=== PATIENT | male | born 1950 | race Caucasian/White ===

== ENCOUNTER 2017-05-01 16:22 | Emergency (ER) | payer MEDICARE, OTHER ==
[~2017-05-01] VITALS: Ht 162.6 cm; Wt 68.0 kg
[~2017-05-01 16:22] MED LIST: BEN25 PO; ELIM TOP
[2017-05-01 16:26] VITALS: Ht 162.6 cm; Wt 68.0 kg
[2017-05-01] MEDS ORDERED: SOD CHLORIDE 0.9% 1,000 ML IV STA (16:30)
[2017-05-01] MEDS ORDERED: LORAZEPAM 2 MG INJ IV ONE (16:30)
[2017-05-01] MEDS ORDERED: ALBUTEROL 0.083% (NEB) 2.5 MG/3 ML AMP HHN STA (16:31)
[2017-05-01 16:51] LABS: ADD SCAN DIFF NO
[2017-05-01] MEDS ORDERED: BUPR300T48 PO ×2 (16:52→18:13)
[2017-05-01] MEDS ORDERED: BUSP10TA2 PO ×2 (16:52→18:14)
[2017-05-01 16:56] LABS: BASOPHIL # 0.1 10^3/ul (0.0-0.1); BASOPHILS % 1.1 % (0.0-2.0); EOSINOPHILS % 0.1 % (0.0-7.0); HEMOGLOBIN 13.7 g/dl (14.0-18.0); LYMPHOCYTES # 1.2 10^3/ul (0.8-2.9); MEAN CORPUSCULAR HGB CONC 35.1 g/dl (32.0-37.0); MEAN CORPUSCULAR VOLUME 82.5 fl (82.0-101.0); MEAN PLATELET VOLUME 10.3 fl (7.4-10.4); MONOCYTE # 0.4 10^3/ul (0.3-0.9); MONOCYTES % 6.1 % (0.0-11.0); NEUTROPHIL # 5.3 10^3/ul (1.6-7.5); NEUTROPHILS % 75.6 % (39.0-77.0); PLATELET COUNT 340 10^3/UL (140-415); RED BLOOD COUNT 4.73 10^6/ul (4.70-6.10); RED CELL DISTRIBUTION WIDTH 12.1 % (11.5-14.5)
--- NOTE | 2017-05-01 17:06 | RADRPT ---
PROCEDURE: XR Chest. CLINICAL INDICATION: Abdominal pain. TECHNIQUE: Single frontal view. COMPARISON: None. FINDINGS: There is a benign calcified granuloma in the left lower lung zone. The lungs are otherwise clear. The heart size is normal. There is no pleural effusion or pneumothorax. There are is osteoarthrosis of the right glenohumeral joint. IMPRESSION: 1. Benign calcified granuloma in the left lower lobe. 2. Osteoarthrosis of the right glenohumeral joint. 3. Otherwise normal chest radiograph. RPTAT: QQ .Karlos Mello MD, MD Date Time Electronically viewed and signed by .Karlos Mello MD, MD on 05/01/2017 17:06 .R/
--- NOTE | 2017-05-01 17:10 | ERD ---
ER Documentation Chief Complaint Date/Time DATE: 05/01/17 TIME: 17:09 Chief Complaint SOB SINCE THIS MORNING AND FEELS WEAK HPI 67-year-old man brought in by EMS for shortness of breath, dyspnea states he smoked marijuana which may have been laced with another drug. He denies COPD or chronic bronchitis, no fevers or chills, no cough, no chest pain, no recent calf or leg swelling. Patient was transported here by EMS without further complications. He does have a history of psychiatric illness and has been off of his medications but denies suicidal homicidal ideation. ROS All systems reviewed and are negative except as per history of present illness. Medications Home Meds Active Scripts Buspirone Hcl* (Buspirone Hcl*) 10 Mg Tab, 10 MG PO BID, #20 TAB Prov:TAWANDA KIRKLAND MD 05/01/17 Bupropion Hcl* (Wellbutrin XL*) 300 Mg Tab.sr.24h, 300 MG PO DAILY, #15 TAB.SA Prov:TAWANDA KIRKLAND MD 05/01/17 Discontinued Reported Medications Buspirone Hcl* (Buspirone Hcl*) 10 Mg Tab, 60 MG PO DAILY, TAB 05/01/17 Bupropion Hcl* (Wellbutrin XL*) 300 Mg Tab.sr.24h, 300 MG PO DAILY, TAB.SA 05/01/17 Discontinued Scripts Diphenhydramine Hcl* (Benadryl*) 25 Mg Cap, 25 MG PO Q6, #30 CAP Prov:RADHA ENGLAND PA-C 05/14/16 Permethrin* (Elimite*) 5% Cr, 1 APPLIC TOP ONCE, #1 TUB Prov:RADHA ENGLAND PA-C 05/14/16 Allergies Allergies: Coded Allergies: No Known Allergy (Unverified , 05/01/17) PMhx/Soc Psychiatric illness History of Surgery: Yes (SBO, LEFT LEG FRACTURE) Anesthesia Reaction: No Hx Neurological Disorder: No Hx Respiratory Disorders: No Hx Cardiac Disorders: No Hx Psychiatric Problems: Yes (PARANOID-SCHIZO, DEPRESSION) Hx Miscellaneous Medical Probl: No Hx Alcohol Use: Yes (7 YRS SOBER) Hx Substance Use: Yes (MARAJUANA DAILY) Hx Tobacco Use: No Smoking Status: Former smoker FmHx Family History: No diabetes Physical Exam Vitals Vital Signs Date Time Temp Pulse Resp B/P Pulse Ox O2 Delivery O2 Flow Rate FiO2 05/01/17 16:39 85 20 96 21 05/01/17 16:26 98.9 106 22 90/63 97 Physical Exam GENERAL: Well-developed, well-nourished, appears dehydrated, afebrile, anxious HEENT: Dry mucous membranes, pink conjunctiva, no cervical spine tenderness or step-off deformities, no goiter, no jaundice or icterus, extraocular movements intact without pain. No submandibular induration, and no pharyngeal erythema NEURO: Alert and oriented 3, cranial nerves II through XII intact bilaterally, pupils equal round reactive to light, no focal deficits or facial asymmetry, sensation intact distally Strength 5/5 in upper and lower extremities bilaterally CARDIAC: Tachycardic and regular, no murmurs rubs or gallops LUNGS: Clear bilaterally no wheezing crackles or stridor ABDOMEN: Soft nontender, no guarding, no rigidity, no rebound, no psoas sign no obturator sign. Normoactive bowel sounds SKIN: Warm and dry to touch, no abrasions, contusions, or hematomas, no lacerations, no ecchymosis, no target lesions, and without ulcers EXTREMITIES: No clubbing cyanosis or edema, calves are bilaterally symmetrical, no Homans sign, no popliteal cord sign. Distal pulses equal and bilateral PSYCH: Anxious Result Diagram: 05/01/17 1638 05/01/17 1638 Results 24 hrs Laboratory Tests Test 05/01/17 16:38 White Blood Count 7.010^3/ul Red Blood Count 4.7310^6/ul Hemoglobin 13.7g/dl Hematocrit 39.0% Mean Corpuscular Volume 82.5fl Mean Corpuscular Hemoglobin 29.0pg Mean Corpuscular Hemoglobin Concent 35.1g/dl Red Cell Distribution Width 12.1% Platelet Count 79656^3/UL Mean Platelet Volume 10.3fl Neutrophils % 75.6% Lymphocytes % 17.0% Monocytes % 6.1% Eosinophils % 0.1% Basophils % 1.1% Nucleated Red Blood Cells % 0.0/100WBC Neutrophils # 5.310^3/ul Lymphocytes # 1.210^3/ul Monocytes # 0.410^3/ul Eosinophils # 0.010^3/ul Basophils # 0.110^3/ul Nucleated Red Blood Cells # 0.010^3/ul Sodium Level 139mmol/L Potassium Level 3.8mmol/L Chloride Level 104mmol/L Carbon Dioxide Level 22mmol/L Anion Gap 17 Blood Urea Nitrogen 18mg/dl Creatinine 1.43mg/dl Glucose Level 92mg/dl Calcium Level 10.4mg/dl Total Bilirubin 0.6mg/dl Direct Bilirubin 0.00mg/dl Indirect Bilirubin 0.6mg/dl Aspartate Amino Transf (AST/SGOT) 33IU/L Alanine Aminotransferase (ALT/SGPT) 31IU/L Alkaline Phosphatase 68IU/L Troponin I 0.028ng/ml Total Protein 6.9g/dl Albumin 4.9g/dl Globulin 2.00g/dl Albumin/Globulin Ratio 2.45 Lipase 301U/L Ethyl Alcohol Level < 10.0mg/dl Current Medications Medications (Trade) Dose Ordered Sig/Selena Route PRN Reason Start Time Stop Time Status Last Admin Dose Admin Sodium Chloride (NS) 1,000 ml @ 1,000 mls/hr Q1H STAT IV 05/01/17 16:30 05/01/17 17:29 DC 05/01/17 16:51 Lorazepam (Ativan) 1 mg ONCE ONCE IV 05/01/17 16:30 05/01/17 16:32 DC 05/01/17 16:51 Albuterol (Proventil 0.083% (Neb)) 5 mg ONCE STAT HHN 05/01/17 16:31 05/01/17 16:32 DC 05/01/17 16:38 Procedures/MDM IV line was established 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 Patient was afebrile. EKG performed, read by me: 96 bpm, normal sinus rhythm, normal axis, no acute ST segment changes, narrow QRS complex, with good R-wave progression in precordial leads. I administered 1 L normal saline intravenously for dehydration, lorazepam 1 mg IV for anxiety, and albuterol 5 mg via nebulizer for complaints of shortness of breath. One view chest x-ray performed, read by me revealed atelectatic changes bilaterally, no acute infiltrates, no pneumothorax. CBC was unremarkable, electrolytes revealed dehydration with a BUN/creatinine ratio of 18/1.4, liver function tests are normal, troponin was negative. Alcohol level was negative. Differential diagnoses considered, included but not limited to acute coronary syndrome, pulmonary embolism, aortic dissection, abdominal aortic aneurysm, sepsis, stroke, meningitis, encephalitis, pneumonia, appendicitis, cholecystitis , bowel obstruction, pyelonephritis, nephrolithiasis, cystitis, as well as metabolic, hematologic, and electrolyte abnormalities. As well as abscess, cellulitis, fractures, and dislocations. Patient feels much better at this time, and vital signs are normal, symptoms have improved. I did give strict instructions to return to the ED if symptoms continue or worsen, patient will otherwise follow-up with primary care physician. Patient understood instructions and agreed to plan. Disclaimer: Inadvertent spelling and grammatical errors are likely due to EHR/ dictation software use and do not reflect on the overall quality of patient care. Also, please note that the electronic time recorded on this note does not necessarily reflect the actual time of the patient encounter. Departure Diagnosis: Primary Impression: Psychiatric illness Additional Impressions: Shortness of breath Dehydration Condition: Good TAWANDA KIRKLAND MD May 01, 2017 17:10
[2017-05-01 17:17] LABS: ALANINE AMINOTRANSFERASE 31 IU/L (13-69); ALBUMIN 4.9 g/dl (3.3-4.9); ALBUMIN/GLOBULIN RATIO 2.45; ALKALINE PHOSPHATASE 68 IU/L (42-121); ANION GAP 17 (8-16); ASPARTATE AMINO TRANSFERASE 33 IU/L (15-46); BILIRUBIN,INDIRECT 0.6 mg/dl (0-1.1); BILIRUBIN,TOTAL 0.6 mg/dl (0.2-1.3); BLOOD UREA NITROGEN 18 mg/dl (7-20); CALCIUM 10.4 mg/dl (8.4-10.2); CARBON DIOXIDE 22 mmol/L (21-31); CHLORIDE 104 mmol/L (97-110); CREATININE 1.43 mg/dl (0.61-1.24); GLUCOSE 92 mg/dl (70-220); POTASSIUM 3.8 mmol/L (3.5-5.1); SODIUM 139 mmol/L (135-144); TOTAL PROTEIN 6.9 g/dl (6.1-8.1)
[2017-05-01 17:23] LABS: ETHANOL < 10.0 mg/dl
[2017-05-01 17:27] LABS: TROPONIN-I 0.028 ng/ml (0.00-0.12)
[2017-05-01 18:33] VITALS: BP 111/76; PULSE 86; RESP 18
== END 2017-05-01 18:34 | disposition home or self-care (01) ==
LOC: E/R 16:22
DX: F99 Mental disorder, not otherwise specified (principal); E86.0 Dehydration; Z87.891 Personal history of nicotine dependence
CPT/HCPCS: 36415; 71010; 80053; 80306; 83690; 84484; 85025; 93005; 94664; 96374; 99285; J2060; J7030

== ENCOUNTER 2017-08-13 10:12 | Emergency (ER) | payer MEDICARE, OTHER ==
[~2017-08-13] VITALS: Wt 91.0 kg
[~2017-08-13 10:12] MED LIST changes: -BEN25 PO; +BUPR300T48 PO; +BUSP10TA2 PO; -ELIM TOP
[2017-08-13] MEDS ORDERED: LORAZEPAM 1 MG TAB PO ONE (10:30)
[2017-08-13 10:52] LABS: BASOPHIL # 0.1 10^3/ul (0.0-0.1); BASOPHILS % 1.2 % (0.0-2.0); EOSINOPHILS % 0.6 % (0.0-7.0); HEMATOCRIT 32.4 % (42.0-52.0); LYMPHOCYTES # 1.3 10^3/ul (0.8-2.9); LYMPHOCYTES % 24.7 % (15.0-51.0); MEAN CORPUSCULAR HEMOGLOBIN 23.9 pg (29.0-33.0); MEAN CORPUSCULAR HGB CONC 30.9 g/dl (32.0-37.0); MEAN CORPUSCULAR VOLUME 77.5 fl (82.0-101.0); MEAN PLATELET VOLUME 9.7 fl (7.4-10.4); MONOCYTE # 0.5 10^3/ul (0.3-0.9); MONOCYTES % 10.4 % (0.0-11.0); NEUTROPHIL # 3.3 10^3/ul (1.6-7.5); NEUTROPHILS % 62.9 % (39.0-77.0); PLATELET COUNT 290 10^3/UL (140-415); RED BLOOD COUNT 4.18 10^6/ul (4.70-6.10); RED CELL DISTRIBUTION WIDTH 13.3 % (11.5-14.5); WHITE BLOOD COUNT 5.2 10^3/ul (4.8-10.8)
[2017-08-13 11:11] LABS: ANION GAP 14 (8-16); BLOOD UREA NITROGEN 13 mg/dl (7-20); CALCIUM 9.2 mg/dl (8.4-10.2); CARBON DIOXIDE 21 mmol/L (21-31); CHLORIDE 111 mmol/L (97-110); CREATININE 0.96 mg/dl (0.61-1.24); GLUCOSE 82 mg/dl (70-220); POTASSIUM 3.5 mmol/L (3.5-5.1); SODIUM 142 mmol/L (135-144)
[2017-08-13 11:12] LABS: ETHANOL < 10.0 mg/dl
--- NOTE | 2017-08-13 12:25 | ERD ---
ER Documentation Chief Complaint Date/Time DATE: 08/13/17 TIME: 12:21 Chief Complaint DRUG USE "SOMEONE LACED MY WEED" HPI This is a 67-year-old male who presents via EMS. The patient has chronic blindness. He lives alone. He states that he smokes marijuana. He states that he smoked marijuana earlier today and states that he is having hallucinations. He believes that he is seeing where things. He is not hearing voices he denies any suicidal homicidal thoughts. He thinks that somebody placed something in his marijuana. The patient is similar visits to the hospital for similar reasons in the past. Denies any headache, chest pain or shortness of breath. No other complaints. ROS All systems reviewed and are negative except as per history of present illness. Medications Home Meds Active Scripts Buspirone Hcl* (Buspirone Hcl*) 10 Mg Tab, 10 MG PO BID, #20 TAB Prov:TAWANDA KIRKLAND MD 05/01/17 Bupropion Hcl* (Wellbutrin XL*) 300 Mg Tab.sr.24h, 300 MG PO DAILY, #15 TAB.SA Prov:TAWANDA KIRKLAND MD 05/01/17 Allergies Allergies: Coded Allergies: No Known Allergy (Unverified , 05/01/17) PMhx/Soc History of Surgery: Yes (SBO, LEFT LEG FRACTURE) Anesthesia Reaction: No Hx Neurological Disorder: No Hx Respiratory Disorders: No Hx Cardiac Disorders: No Hx Psychiatric Problems: Yes (PARANOID-SCHIZO, DEPRESSION) Hx Miscellaneous Medical Probl: No Hx Alcohol Use: Yes (7 YRS SOBER) Hx Substance Use: Yes (MARAJUANA DAILY) Hx Tobacco Use: No Smoking Status: Current every day smoker FmHx Family History: No diabetes Physical Exam Vitals Vital Signs Date Time Temp Pulse Resp B/P Pulse Ox O2 Delivery O2 Flow Rate FiO2 08/13/17 10:17 98.0 99 18 124/83 99 Physical Exam General: Well developed, well nourished, no acute distress Head: Normocephalic, atraumatic. Eyes: Chronic blindness ENT: Moist mucous membranes Neck: Supple, no lymphadenopathy Respiratory: Lungs clear bilaterally, no distress Cardiovascular: RRR, no murmurs, rubs, or gallops Abdominal: Soft, non-tender, non-distended, no peritoneal signs : Deferred MSK: No edema, no unilateral swelling, 5/5 strength Neurologic: Alert and oriented, moving all extremities, normal speech, no focal weakness, no cerebellar signs Skin: No rash Psych: Visual hallucinations, no suicidal thoughts Result Diagram: 08/13/17 1040 08/13/17 1038 Results 24 hrs Laboratory Tests Test 08/13/17 10:38 08/13/17 10:40 Sodium Level 142mmol/L Potassium Level 3.5mmol/L Chloride Level 111mmol/L Carbon Dioxide Level 21mmol/L Anion Gap 14 Blood Urea Nitrogen 13mg/dl Creatinine 0.96mg/dl Glucose Level 82mg/dl Calcium Level 9.2mg/dl Ethyl Alcohol Level < 10.0mg/dl White Blood Count 5.210^3/ul Red Blood Count 4.1810^6/ul Hemoglobin 10.0g/dl Hematocrit 32.4% Mean Corpuscular Volume 77.5fl Mean Corpuscular Hemoglobin 23.9pg Mean Corpuscular Hemoglobin Concent 30.9g/dl Red Cell Distribution Width 13.3% Platelet Count 00191^3/UL Mean Platelet Volume 9.7fl Neutrophils % 62.9% Lymphocytes % 24.7% Monocytes % 10.4% Eosinophils % 0.6% Basophils % 1.2% Nucleated Red Blood Cells % 0.0/100WBC Neutrophils # 3.310^3/ul Lymphocytes # 1.310^3/ul Monocytes # 0.510^3/ul Eosinophils # 0.010^3/ul Basophils # 0.110^3/ul Nucleated Red Blood Cells # 0.010^3/ul Current Medications Medications (Trade) Dose Ordered Sig/Selena Route PRN Reason Start Time Stop Time Status Last Admin Dose Admin Lorazepam (Ativan) 1 mg ONCE ONCE PO 08/13/17 10:30 08/13/17 10:31 DC 08/13/17 11:16 Procedures/MDM LAB INTERPRETATION: No significant leukocytosis or electrolyte disturbance MEDICAL DECISION MAKING: The patient presents with hallucinations after using marijuana. His presentation is very consistent with likely THC intoxication. He exhibits no signs or symptoms concerning for increased intracranial pressure, acute psychosis. He denies any suicidal or homicidal thoughts. The patient states that he lives alone but he is having no difficulty with activities of daily living. He states that he can feed himself get himself to and from appointments and about the community. ER COURSE: The patient was given Ativan per verbal request. His laboratory testing is unrevealing. The patient states the hallucinations are almost completely gone. The patient at this time exhibits no evidence of acute psychosis that warrants psychiatric evaluation or inpatient hospitalization. I offered social work but the patient states that he does not need this. The patient is comfortable going home. He would like a taxi voucher for discharge. I kept the patient and/or family informed of laboratory and diagnostic imaging results throughout the emergency room course. We discussed follow up with the patient's primary care doctor within 24 to 48 hours as needed. We also discussed return to the emergency room for worsening symptoms or worsening condition. Outpatient referral: [None required] Departure Diagnosis: Primary Impression: Marijuana intoxication Complication of substance-induced condition: uncomplicated Qualified Code: F12.920 - Cannabis intoxication without complication Additional Impression: Marijuana abuse Condition: Stable Patient Instructions: Marijuana Abuse Referrals: [facility] YOU HAVE RECEIVED A MEDICAL SCREENING EXAM AND THE RESULTS INDICATE THAT YOU DO NOT HAVE A CONDITION THAT REQUIRES URGENT TREATMENT IN THE EMERGENCY DEPARTMENT. FURTHER EVALUATION AND TREATMENT OF YOUR CONDITION CAN WAIT UNTIL YOU ARE SEEN IN YOUR DOCTORS OFFICE WITHIN THE NEXT 1-2 DAYS. IT IS YOUR RESPONSIBILITY TO MAKE AN APPOINTMENT FOR FOLOW-UP CARE. IF YOU HAVE A PRIMARY DOCTOR --you should call your primary doctor and schedule an appointment IF YOU DO NOT HAVE A PRIMARY DOCTOR YOU CAN CALL OUR PHYSICIAN REFERRAL HOTLINE AT IF YOU CAN NOT AFFORD TO SEE A PHYSICIAN YOU CAN CHOSE FROM THE FOLLOWING [facility] [address] [facility]. [facility] [address] [facility] [address] [facility] [facility] [address] [facility]. [facility] [address] [facility]. [facility]. [address] [facility] YOU HAVE RECEIVED A MEDICAL SCREENING EXAM AND THE RESULTS INDICATE THAT YOU DO NOT HAVE A CONDITION THAT REQUIRES URGENT TREATMENT IN THE EMERGENCY DEPARTMENT. FURTHER EVALUATION AND TREATMENT OF YOUR CONDITION CAN WAIT UNTIL YOU ARE SEEN IN YOUR DOCTORS OFFICE WITHIN THE NEXT 1-2 DAYS. IT IS YOUR RESPONSIBILITY TO MAKE AN APPOINTMENT FOR FOLOW-UP CARE. IF YOU HAVE A PRIMARY DOCTOR --you should call your primary doctor and schedule and appointment IF YOU DO NOT HAVE A PRIMARY DOCTOR YOU CAN CALL OUR PHYSICIAN REFERRAL HOTLINE AT . IF YOU CAN NOT AFFORD TO SEE A PHYSICIAN YOU CAN CHOSE FROM THE FOLLOWING [facility] INSTITUTIONS: [facility] [address] [place] [address] [facility] [address] [place] [address] [facility] + [facility] [address] [place] [address] Additional Instructions: Call your primary care doctor TOMORROW for an appointment during the next 1 WEEK.Tell the guidance secretary that you were referred from this facility.See the doctor sooner or return here if your condition worsens before your appointment time. CASPER MILLER MD Aug 13, 2017 12:25
[2017-08-13 13:49] VITALS: BP 122/87; PULSE 86; RESP 20; TEMP 98.3
== END 2017-08-13 13:54 | disposition home or self-care (01) ==
LOC: E/R 10:12
DX: F12.920 Cannabis use, unspecified with intoxication, uncomplicated (principal); F17.210 Nicotine dependence, cigarettes, uncomplicated; R40.2142 Coma scale, eyes open, spontaneous, at arrival to emergency department; R40.2252 Coma scale, best verbal response, oriented, at arrival to emergency department; R40.2362 Coma scale, best motor response, obeys commands, at arrival to emergency department
CPT/HCPCS: 36415; 80048; 80306; 85025; 99283

== ENCOUNTER 2017-09-02 09:04 | Inpatient (IN) | payer MEDICARE, OTHER ==
[~2017-09-02] VITALS: Ht 177.8 cm; Wt 68.6 kg
[2017-09-02] MEDS ORDERED: NITROGLYCERIN 2% 1 GM OINT PKT TD STA (09:10)
[2017-09-02] MEDS ORDERED: LORAZEPAM 2 MG INJ IV ONE (09:30)
[2017-09-02] MEDS ORDERED: NITROGLYCERIN (SL) 0.4 MG TAB SL PRN (09:30)
--- NOTE | 2017-09-02 10:04 | RADRPT ---
PROCEDURE: XR Chest. CLINICAL INDICATION: chest pain TECHNIQUE: Single frontal view of the chest was obtained COMPARISON: CHEST 05/01/2017 FINDINGS: The heart and mediastinum are within normal limits. There is a tiny left lower lobe calcified granuloma. The lungs are otherwise clear. There is no pleural effusion or pneumothorax. RPTAT: AA IMPRESSION: No acute disease. .Nelson Antunez MD, MD Date Time Electronically viewed and signed by .Nelson Antunez MD, on 09/02/2017 10:04 .S/
[2017-09-02] MEDS ORDERED: ACETAMINOPHEN 325 MG TAB PO PRN ×2 (11:30→14:30)
[2017-09-02] MEDS ORDERED: ONDANSETRON 4 MG INJ IV PRN ×2 (11:30→14:30)
[2017-09-02 11:40] LABS: BASOPHIL # 0.1 10^3/ul (0.0-0.1); BASOPHILS % 0.9 % (0.0-2.0); EOSINOPHILS % 0.2 % (0.0-7.0); HEMATOCRIT 34.1 % (42.0-52.0); HEMOGLOBIN 10.2 g/dl (14.0-18.0); LYMPHOCYTES # 0.9 10^3/ul (0.8-2.9); LYMPHOCYTES % 15.5 % (15.0-51.0); MEAN CORPUSCULAR HEMOGLOBIN 23.6 pg (29.0-33.0); MEAN CORPUSCULAR HGB CONC 29.9 g/dl (32.0-37.0); MEAN CORPUSCULAR VOLUME 78.8 fl (82.0-101.0); MEAN PLATELET VOLUME 9.9 fl (7.4-10.4); MONOCYTE # 0.5 10^3/ul (0.3-0.9); MONOCYTES % 8.3 % (0.0-11.0); NEUTROPHIL # 4.3 10^3/ul (1.6-7.5); NEUTROPHILS % 74.9 % (39.0-77.0); PLATELET COUNT 314 10^3/UL (140-415); RED BLOOD COUNT 4.33 10^6/ul (4.70-6.10); RED CELL DISTRIBUTION WIDTH 14.4 % (11.5-14.5); WHITE BLOOD COUNT 5.8 10^3/ul (4.8-10.8)
[2017-09-02 12:11] LABS: ANION GAP 17 (8-16); BLOOD UREA NITROGEN 24 mg/dl (7-20); CALCIUM 8.6 mg/dl (8.4-10.2); CARBON DIOXIDE 21 mmol/L (21-31); CHLORIDE 107 mmol/L (97-110); CREATININE 1.14 mg/dl (0.61-1.24); GLUCOSE 85 mg/dl (70-220); SODIUM 141 mmol/L (135-144)
[2017-09-02 12:22] LABS: TROPONIN-I < 0.012 ng/ml (0.00-0.12)
[2017-09-02 12:50] VITALS: BP 107/75; PULSE 78; RESP 16; TEMP 98
--- NOTE | 2017-09-02 13:13 | ERD ---
ER Documentation Chief Complaint Chief Complaint BIBA C/O MEDIAL CHEST PAIN 07/17 NON RADIATING HPI Patient is a 67-year-old male with no medical problems who presents with chest pain. The patient was brought in by ambulance. He was given aspirin 3 nitroglycerin. He came from the counseling center who would call 911 because he was having chest pain. He had chest pain for 2 hours which is midsternal. He feels a stabbing type pain that he rates as a 9 out of 10. There is no radiation. He says "feels like somebody hit me on my chest". ROS All systems reviewed and are negative except as per history of present illness. Medications Home Meds Active Scripts Buspirone Hcl* (Buspirone Hcl*) 10 Mg Tab, 10 MG PO BID, #20 TAB Prov:TAWANDA KIRKLAND MD 05/01/17 Bupropion Hcl* (Wellbutrin XL*) 300 Mg Tab.sr.24h, 300 MG PO DAILY, #15 TAB.SA Prov:TAWANDA KIRKLAND MD 05/01/17 Allergies Allergies: Coded Allergies: No Known Allergy (Unverified , 05/01/17) PMhx/Soc Medical and Surgical Hx: pt denies Surgical Hx History of Surgery: No Anesthesia Reaction: No Hx Neurological Disorder: No Hx Respiratory Disorders: No Hx Cardiac Disorders: Yes (HLD) Hx Psychiatric Problems: Yes (BIPOLAR) Hx Miscellaneous Medical Probl: No Hx Alcohol Use: No Hx Substance Use: No Hx Tobacco Use: Yes Smoking Status: Former smoker FmHx Family History: No coronary disease Physical Exam Vitals Vital Signs Date Time Temp Pulse Resp B/P Pulse Ox O2 Delivery O2 Flow Rate FiO2 09/02/17 09:10 Nasal Cannula 2 09/02/17 09:10 98.1 76 16 109/77 99 Physical Exam Const: Moderate distress secondary to chest pain Head: Atraumatic Eyes: Normal Conjunctiva ENT: Normal External Ears, Nose and Mouth. Neck: Full range of motion..~ No meningismus. Resp: Clear to auscultation bilaterally Cardio: Regular rate and rhythm, no murmurs Abd: Soft, non tender, non distended. Normal bowel sounds Skin: No petechiae or rashes Back: No midline or flank tenderness Ext: No cyanosis, or edema Neur: Awake and alert Psych: Normal Mood and Affect Result Diagram: 10/27/17 1048 09/02/17 1048 Results 24 hrs Laboratory Tests Test 09/02/17 10:48 White Blood Count 5.810^3/ul Red Blood Count 4.3310^6/ul Hemoglobin 10.2g/dl Hematocrit 34.1% Mean Corpuscular Volume 78.8fl Mean Corpuscular Hemoglobin 23.6pg Mean Corpuscular Hemoglobin Concent 29.9g/dl Red Cell Distribution Width 14.4% Platelet Count 84512^3/UL Mean Platelet Volume 9.9fl Neutrophils % 74.9% Lymphocytes % 15.5% Monocytes % 8.3% Eosinophils % 0.2% Basophils % 0.9% Nucleated Red Blood Cells % 0.0/100WBC Neutrophils # 4.310^3/ul Lymphocytes # 0.910^3/ul Monocytes # 0.510^3/ul Eosinophils # 0.010^3/ul Basophils # 0.110^3/ul Nucleated Red Blood Cells # 0.010^3/ul Sodium Level 141mmol/L Potassium Level 4.0mmol/L Chloride Level 107mmol/L Carbon Dioxide Level 21mmol/L Anion Gap 17 Blood Urea Nitrogen 24mg/dl Creatinine 1.14mg/dl Glucose Level 85mg/dl Calcium Level 8.6mg/dl Troponin I < 0.012ng/ml Current Medications Medications (Trade) Dose Ordered Sig/Selena Route PRN Reason Start Time Stop Time Status Last Admin Dose Admin Nitroglycerin (Nitroglycerin 2% Oint) 1 inch ONCE STAT TD 09/02/17 09:10 09/02/17 09:12 DC Nitroglycerin (Nitroglycerin (Sl Tab) 0.4 Mg) 1 tab Q5M UP TO 3 DOSES PRN SL CHEST PAIN 09/02/17 09:30 Lorazepam (Ativan) 1 mg ONCE ONCE IV 09/02/17 09:30 09/02/17 09:31 DC 09/02/17 09:30 Procedures/MDM EKG #1 read by me: Rate/Rhythm: Regular rate and rhythm at a normal rate Intervals: Normal Impression: No evidence of ischemia or arrhythmia EKG #2 read by me: Rate/Rhythm: Regular rate and rhythm at a normal rate Intervals: Normal Impression: No evidence of ischemia or arrhythmia Chest x-ray negative per radiology. Patient is a 67-year-old male who presents with chest pain. I am concerned for acute coronary syndrome as the patient is 67 years old. The patient was given aspirin nitroglycerin. I doubt pneumonia, pneumothorax, pulmonary embolism, or aortic dissection. The patient will need to be admitted for evaluation of his chest pain. I spoke with Dr. Lopez from the panel team for admission to a telemetry bed. Departure Diagnosis: Primary Impression: Chest pain Chest pain type: unspecified Qualified Code: R07.9 - Chest pain, unspecified type Condition: DEBBIE Ledesma MD Sep 02, 2017 13:13
[2017-09-02 13:32] VITALS: Ht 177.8 cm; Wt 68.6 kg
[2017-09-02] MEDS ORDERED: SOD CHLORIDE 0.45% 1,000 ML IV SCH (14:12)
[2017-09-02] MEDS ORDERED: BUSPIRONE 10 MG TAB PO SCH (14:30)
[2017-09-02] MEDS ORDERED: BISACODYL (EC) 5 MG TAB PO PRN (14:30)
[2017-09-02] MEDS ORDERED: OLANZAPINE 10 MG VIAL IM PRN (14:30)
[2017-09-02] MEDS ORDERED: LORAZEPAM 1 MG TAB PO PRN (14:30)
[2017-09-02] MEDS ORDERED: BUPROPION (XL) 150 MG TAB PO SCH (14:30)
[2017-09-02] MEDS ORDERED: morphine 2 MG INJ IV PRN (14:30)
[2017-09-02] MEDS ORDERED: PANTOPRAZOLE 40 MG INJ IV ONE (14:30)
[2017-09-02] MEDS ORDERED: NACL 0.9% 3 ML SYG IV SCH (14:30)
--- NOTE | 2017-09-02 14:32 | HP ---
Date/Time of Note Date/Time of Note DATE: 09/02/17 TIME: 14:25 Assessment/Plan VTE Prophylaxis VTE Prophylaxis Intervention: LMWH Lines/Catheters IV [facility] Saline Lock Urinary Cath still in place: No Assessment/Plan Chief Complaint/Hosp Course Patient is 67-year-old male who presents for chest pain Assessment and plan Chest pain, rule out ACS Anemia Visual hallucinations Mood disorder Questionable schizophrenia Depression Anxiety -Patient has significant psych disorder history, presents with new onset chest pain, cardiology has been consulted, troponins trended -Questionable likelihood of true ACS, will give aspirin, blood pressure low at this time will hold off on beta-kiesha, nitro as needed -As needed pain medication -Preliminary anemia workup sent out -Echocardiogram ordered Problems: HPI/ROS Admit Date/Time Admit Date/Time Sep 02, 2017 at 11:17 Hx of Present Illness Patient is a 67-year-old male with past medical history significant for bipolar and/or schizophrenia who presents with 1 day history of midsternal pinpoint chest pain. Patient states that the pain began early this morning upon sunrise and although it hurt his chest patient still went to his counseling session. Patient did complain of chest pain at the counseling session and subsequently the counselor called 911 and ambulance brought patient to [facility]. Patient states that his chest pain at the time of encounter is significantly better although there is some residual pain. Patient states that this has never happened before and he does not see a normal doctor on a regular basis. Patient does take his psych medications on time. Patient is likely homeless, has no teeth and is able to ambulate without assistance. Patient only is concerned about eating at the time of encounter. Patient has never had a stress test or ultrasound. Patient denies any shortness of breath, nausea, vomiting. Patient does state that he was sweating and had shortness of breath during the initial chest pain. 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 Neurological: Moves all extremities spontaneously Skin: No new skin lesions Labs Result Diagram: 09/02/17 1048 09/02/17 1048 Medications Medications Current Medications Bupropion HCl (Wellbutrin Xl) 300 mg DAILY PO ; Start 09/02/17 at 14:30; Status UNV Buspirone HCl 10 mg 10 mg BID PO ; Start 09/02/17 at 14:30; Status UNV Sodium Chloride (1/2 NS) 1,000 ml @ 50 mls/hr Q20H IV ; Start 09/02/17 at 14: 12; Status UNV Ondansetron HCl (Zofran Inj) 4 mg Q6H PRN IV NAUSEA AND/OR VOMITING; Start at 14:30; Status UNV Acetaminophen (Tylenol Tab) 650 mg Q6H PRN PO PAIN LEVEL 1-3 OR FEVER; Start 09/02/17 at 14:30; Status UNV Morphine Sulfate (morphine) 2 mg Q4H PRN IV SEVERE PAIN LEVEL 7-10; Start at 14:30; Status UNV Bisacodyl (Dulcolax) 5 mg DAILY PRN PO CONSTIPATION; Start 09/02/17 at 14:30; Status UNV Pantoprazole (Protonix Iv) 40 mg DAILY@06 IV ; Start 09/03/17 at 06:00; Status UNV Enoxaparin Sodium (Lovenox) 40 mg DAILY SC ; Start 09/03/17 at 09:00; Status UNV TAWANDA SOTO Sep 02, 2017 14:32
--- NOTE | 2017-09-02 15:40 | DS ---
Date/Time of Note Date/Time of Note DATE: 09/02/17 TIME: 15:39 Discharge Summary Admission/Discharge Info Admit Date/Time Sep 02, 2017 at 11:17 Discharge Date/Time Sep 02, 2017 at 14:30 Patient Condition: Serious Hx of Present Illness Patient is a 67-year-old male with past medical history significant for bipolar and/or schizophrenia who presents with 1 day history of midsternal pinpoint chest pain. Patient states that the pain began early this morning upon sunrise and although it hurt his chest patient still went to his counseling session. Patient did complain of chest pain at the counseling session and subsequently the counselor called 911 and ambulance brought patient to [facility]. Patient states that his chest pain at the time of encounter is significantly better although there is some residual pain. Patient states that this has never happened before and he does not see a normal doctor on a regular basis. Patient does take his psych medications on time. Patient is likely homeless, has no teeth and is able to ambulate without assistance. Patient only is concerned about eating at the time of encounter. Patient has never had a stress test or ultrasound. Patient denies any shortness of breath, nausea, vomiting. Patient does state that he was sweating and had shortness of breath during the initial chest pain. PMH: Mood disorder, bipolar, schizophrenia, anxiety PSH: Dusty placed in left leg, stomach surgery, SBO Social: Previous smoker, previous drinker, previous drug use Meds: buspirone and bupropion Hospital Course Patient is 67-year-old male who presents for chest pain Assessment and plan Chest pain, rule out ACS Anemia Visual hallucinations Mood disorder Questionable schizophrenia Depression Anxiety Patient was admitted, but was preoccupied with wanting to eat. Patient eloped out of the facility even before AMA forms could be presented. Patient ELOPED. Was not discharged Home Meds Active Scripts Buspirone Hcl* (Buspirone Hcl*) 10 Mg Tab, 10 MG PO BID, #20 TAB Prov:TAWANDA KIRKLAND MD 05/01/17 Bupropion Hcl* (Wellbutrin XL*) 300 Mg Tab.sr.24h, 300 MG PO DAILY, #15 TAB.SA Prov:TAWANDA KIRKLAND MD 05/01/17 Primary Care Provider Care Physician No Primary Time spent on discharge: > 30 minutes Pending Labs Laboratory Tests Test 09/02/17 10:48 White Blood Count 5.810^3/ul (4.8-10.8) Red Blood Count 4.3310^6/ul (4.70-6.10) Hemoglobin 10.2g/dl (14.0-18.0) Hematocrit 34.1% (42.0-52.0) Mean Corpuscular Volume 78.8fl (82.0-101.0) Mean Corpuscular Hemoglobin 23.6pg (29.0-33.0) Mean Corpuscular Hemoglobin Concent 29.9g/dl (32.0-37.0) Red Cell Distribution Width 14.4% (11.5-14.5) Platelet Count 81281^3/UL (140-415) Mean Platelet Volume 9.9fl (7.4-10.4) Neutrophils % 74.9% (39.0-77.0) Lymphocytes % 15.5% (15.0-51.0) Monocytes % 8.3% (0.0-11.0) Eosinophils % 0.2% (0.0-7.0) Basophils % 0.9% (0.0-2.0) Nucleated Red Blood Cells % 0.0/100WBC (0.0-0.0) Neutrophils # 4.310^3/ul (1.6-7.5) Lymphocytes # 0.910^3/ul (0.8-2.9) Monocytes # 0.510^3/ul (0.3-0.9) Eosinophils # 0.010^3/ul (0.0-0.5) Basophils # 0.110^3/ul (0.0-0.1) Nucleated Red Blood Cells # 0.010^3/ul (0.0-0.0) Sodium Level 141mmol/L (135-144) Potassium Level 4.0mmol/L (3.5-5.1) Chloride Level 107mmol/L (97-110) Carbon Dioxide Level 21mmol/L (21-31) Anion Gap 17 (8-16) Blood Urea Nitrogen 24mg/dl (7-20) Creatinine 1.14mg/dl (0.61-1.24) Glucose Level 85mg/dl (70-220) Calcium Level 8.6mg/dl (8.4-10.2) Troponin I < 0.012ng/ml (0.00-0.12) TAWANDA SOTO Sep 02, 2017 15:40
[2017-09-02] MEDS ORDERED: METHOCARBAMOL 750 MG TAB PO SCH (21:00)
[2017-09-03] MEDS ORDERED: PANTOPRAZOLE 40 MG INJ IV SCH (06:00)
[2017-09-03] MEDS ORDERED: INFLUENZA VIRUS VACCINE 0.5 ML SYG IM* ONE (09:00)
[2017-09-03] MEDS ORDERED: ENOXAPARIN 40 MG/0.4 ML SYG SC SCH (09:00)
[2017-09-03] MEDS ORDERED: ASPIRIN 81 MG TAB PO SCH (09:00)
== END 2017-09-02 14:30 | disposition left against medical advice (07) | DRG 313 ==
LOC: E/R 09:04 → MS3 11:17
PROVIDERS: ADMIT Internal Medicine; ATTEND Internal Medicine
DX: R07.9 Chest pain, unspecified (principal); F32.9 Major depressive disorder, single episode, unspecified; F39 Unspecified mood [affective] disorder; F41.9 Anxiety disorder, unspecified
CPT/HCPCS: 71010; 80048; 84484; 85025; 93005; 96374; J2060

== ENCOUNTER 2019-01-12 05:27 | Emergency (ER) | payer MEDICARE, OTHER ==
[~2019-01-12] VITALS: Ht 177.8 cm; Wt 81.8 kg
[2019-01-12 05:33] VITALS: Ht 177.8 cm; Wt 81.8 kg
--- NOTE | 2019-01-12 06:12 | ERD ---
ER Documentation Chief Complaint Chief Complaint pt having auditory & visual hallucinations HPI This is a 68-year-old male with a prior history of unspecified psychotic disorder who presents with auditory hallucinations. On evaluation patient is tangential, and mumbling. Unclear how long symptoms have been ongoing, he states he had been previously on psych meds but not currently. He has no recent trauma, he denies fever, denies chest pain. ROS All systems reviewed and are negative except as per history of present illness. Medications Home Meds Active Scripts Buspirone Hcl* (Buspirone Hcl*) 10 Mg Tab, 10 MG PO BID, #20 TAB Prov:TAWANDA KIRKLAND MD 05/01/17 Bupropion Hcl* (Wellbutrin XL*) 300 Mg Tab.sr.24h, 300 MG PO DAILY, #15 TAB.SA Prov:TAWANDA KIRKLAND MD 05/01/17 Allergies Allergies: Coded Allergies: No Known Allergy (Unverified , 05/01/17) PMhx/Soc History of Surgery: Yes (STOMACH, LEG) Anesthesia Reaction: No Hx Neurological Disorder: No Hx Respiratory Disorders: No Hx Cardiac Disorders: No Hx Psychiatric Problems: Yes (DEPRESSION, ANXIETY) Hx Miscellaneous Medical Probl: Yes (BIPOLAR, SCHIZO ) Hx Alcohol Use: No (QUIT 7 YEARS AGO) Hx Substance Use: No Hx Tobacco Use: No Smoking Status: Unknown if ever smoked Physical Exam Vitals Vital Signs Date Temp Pulse Resp B/P (MAP) Pulse Ox O2 O2 Flow FiO2 Time Delivery Rate 01/12/19 98.8 84 18 131/81 98 05:33 (98) Physical Exam Const: Elderly appearing male, is animated, and mumbling Head: Atraumatic Eyes: Normal Conjunctiva ENT: Normal External Ears, Nose and Mouth. Neck: Full range of motion. No meningismus. Resp: Clear to auscultation bilaterally Cardio: Regular rate and rhythm, no murmurs Abd: Soft, non tender, non distended. Normal bowel sounds Skin: No petechiae or rashes Back: No midline or flank tenderness Ext: No cyanosis, or edema Neur: Awake and alert Psych: Tangential, mumbling Result Diagram: 01/12/19 0713 01/12/19 0713 Results 24 hrs Laboratory Tests Test 01/12/19 07:13 White Blood Count 8.8 10^3/ul Red Blood Count 4.90 10^6/ul Hemoglobin 13.9 g/dl Hematocrit 41.0 % Mean Corpuscular Volume 83.7 fl Mean Corpuscular Hemoglobin 28.4 pg Mean Corpuscular Hemoglobin Concent 33.9 g/dl Red Cell Distribution Width 12.9 % Platelet Count 274 10^3/UL Mean Platelet Volume 10.4 fl Immature Granulocytes % 0.500 % Neutrophils % 79.3 % Lymphocytes % 12.5 % Monocytes % 6.6 % Eosinophils % 0.2 % Basophils % 0.9 % Nucleated Red Blood Cells % 0.0 /100WBC Immature Granulocytes # 0.040 10^3/ul Neutrophils # 7.0 10^3/ul Lymphocytes # 1.1 10^3/ul Monocytes # 0.6 10^3/ul Eosinophils # 0.0 10^3/ul Basophils # 0.1 10^3/ul Nucleated Red Blood Cells # 0.0 10^3/ul Sodium Level 144 mmol/L Potassium Level 4.0 mmol/L Chloride Level 108 mmol/L Carbon Dioxide Level 21 mmol/L Anion Gap 15 Blood Urea Nitrogen 28 mg/dl Creatinine 0.99 mg/dl Est Glomerular Filtrat Rate mL/min > 60 mL/min Glucose Level 100 mg/dl Calcium Level 9.9 mg/dl Total Bilirubin 0.9 mg/dl Direct Bilirubin 0.00 mg/dl Indirect Bilirubin 0.9 mg/dl Aspartate Amino Transf (AST/SGOT) 42 IU/L Alanine Aminotransferase (ALT/SGPT) 23 IU/L Alkaline Phosphatase 77 IU/L Total Protein 7.5 g/dl Albumin 4.7 g/dl Globulin 2.80 g/dl Albumin/Globulin Ratio 1.67 Salicylates Level < 1.0 mg/dl Acetaminophen Level < 10.0 ug/ml Ethyl Alcohol Level < 10.0 mg/dl Current Medications Medications Dose Sig/Selena Start Time Status Last (Trade) Ordered Route PRN Stop Time Admin Dose Reason Admin Lorazepam 1 mg ONCE ONCE 01/12/19 DC 01/12/19 (Ativan) PO 07:00 01/12/19 06:45 07:01 Quetiapine 50 mg ONCE ONCE 01/12/19 DC Fumarate PO 07:30 01/12/19 (Seroquel) 07:31 Procedures/MDM 68-year-old male with a prior history of unspecified psychotic disorder, presents for auditory hallucinations. Patient is afebrile and nontoxic- appearing to have no evidence of toxidrome. At this point he is medically cleared, psychiatry was consulted and patient is a candidate for a 5150 hold for grave disability. Will plan for transfer. Departure Diagnosis: Primary Impression: Psychological disorder Condition: Stable TAWANDA VELAZQUEZ MD Jan 12, 2019 06:12
[2019-01-12] MEDS ORDERED: LORAZEPAM 1 MG TAB PO ONE (07:00)
--- NOTE | 2019-01-12 07:23 | PSY ---
Date/Time of Note Date/Time of Note DATE: 01/12/19 TIME: 07:19 Psychiatric Subjective Eval Consent Pt consented to telemedicine: Yes Subjective Evaluation Patient location: emergency Chief Complaint: pt having auditory & visual hallucinations Medical history Problems Medical Problems: (1) Chest pain Status: Acute (2) Dehydration Status: Acute (3) Insect bites Status: Acute (4) Marijuana abuse Status: Acute (5) Marijuana intoxication Status: Acute (6) Psychiatric illness Status: Acute (7) Shortness of breath Status: Acute Allergies: Coded Allergies: No Known Allergy (Unverified , 05/01/17) Assessment and Plan Recommendation/Plan Discharge Disposition: Psychiatric inpatient Legal Status: Place involuntary hold Assessment Additional comments: IDENTIFYING INFORMATION: 68 year old Male patient who is currently located at the hospital and for whom psychiatric consultation was requested. SOURCES OF INFORMATION: The patient who appears to be somewhat reliable and the medical records; the nursing staff. 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 HISTORY OF PRESENT ILLNESS: The patient was interviewed via telemedicine in the presence of and under the supervision of nursing staff of the hospital. The consent to conducting this interview via telemedicine was obtained by the nursing staff at the hospital. NELSY Fung reports that the patient presented with AH and VH in the context of medication noncompliance from wellbutrin and buspar. Denies having SI, HI. Received Ativan 1 mg po at the ER. The patient reports having no idea what was going on, AH, admits to paranoia, "does not feel safe at home because those psycho people are walking up and down". Unable to answer most questions in an appropriate manner. Last drink was 8 years ago. The patient denies using alcohol heavily or regularly. The patient reports using MJ. The patient denies using any other substances. In terms of past psychiatric history, the patient reports having a history of past psychiatric hospitalizations. The patient reports having a history of past suicide attempt; last time was over 1 year ago for cutting his wrist. PAST MEDICAL HISTORY: none. CURRENT MEDICATIONS: wellbutrin XL 300 mg po qam, buspar unknown dose- last time was 1 week ago. ALLERGIES TO MEDICATIONS: NKDA. LABORATORY TESTS: pending. SOCIAL HISTORY: lives at a flat with "street bitches , not [employer] school people", on SSI. REVIEW OF SYSTEMS: Constitutional (e.g., fever, weight loss): negative; Eyes, Ears, Nose, Mouth, Throat: negative; Cardiovascular: negative; Respiratory: negative; Gastrointestinal: negative; Genitourinary: negative; Musculoskeletal: negative; Integumentary (skin and/or breast): negative; Neurological: negative; Psychiatric: as per HPI; Endocrine: negative; Hematologic/Lymphatic: negative; Allergic/Immunologic: negative. MENTAL STATUS EXAMINATION: General Appearance and Behavior: restless, appears to be responding to internal stimuli, partially cooperative with most of the interview, distant with the current interviewer, makes poor eye contact, poorly groomed, increased psychomotor activity, no abnormal movements noted. Speech: Normal rate, regular rhythm, normal latency, normal volume, increased amount. Flow of thought: tangential, illogical, not goal-directed. Content of thought: + auditory hallucinations, + paranoid delusions, no visual hallucinations, no suicidal ideation; no homicidal ideation. Mood: "OK". Affect: agitated, angry, flat, decreased range of reactivity. Attention: normal based on the interview. Insight: poor. Judgment: poor. Memory: normal based on the interview. Sensorium: alert and oriented to person, date, place. ASSESSMENT: The patient's presentation and history are consistent with the diagnosis of unspecified psychotic disorder. The patient presents with an exacerbation of psychosis in the context of medication noncompliance, psychosocial stressors. PLAN: - Medication management: Would start seroquel 50 mg po bid. Would start haloperidol 5 mg IM PRN severe agitation q4 hours. Would start diphenhydramine 50 mg IM PRN severe agitation q4 hours. Would start lorazepam 2 mg IM PRN severe agitation q4 hours Will defer to the inpatient psychiatry team for other medication changes. - Labs: Please check CBC, CMP, Alcohol level, UDS. - Psychotherapy: Provided supportive psychotherapy and psychoeducation. - Disposition: Would recommend involuntary admission to the inpatient psychiatric unit given the severity of the patient's psychiatric condition and the fact that the patient is an imminent danger to self and/or others so long as the patient has been cleared medically for admission to psychiatry. Inpatient psychiatric admission is at this time the least restrictive environment where the patient can receive the psychiatric care that is needed. Would place on suicide precautions. The patient fulfills criteria for being placed on an involuntary hold for being gravely disabled due to a psychiatric disorder. Discussed about the above plan with Dr. Montero. OLMAN LOPEZ MD Jan 12, 2019 07:23
[2019-01-12] MEDS ORDERED: QUETIAPINE 25 MG TAB PO ONE (07:30)
[2019-01-12] MEDS ORDERED: BUSPIRONE 5 MG TAB PO ONE (20:30)
[2019-01-13] MEDS ORDERED: BUSP15TA3 PO (00:32)
--- NOTE | 2019-01-13 04:25 | EN ---
Date/Time of Note Date/Time of Note DATE: 01/13/19 TIME: 04:24 ER Progress Note Observation Note: Time: 4hours Family Hx: No Hypertension Evaluation: Multiple exams showed improving symptoms and no evidence of acute clinical decompensation He was evaluated by PET, who recommended discharging the patient I discussed the findings with the patient. I advised the patient to follow-up with his psychiatrist in about 2-3 days, sooner if needed and return if any concern. Disclaimer: Inadvertent spelling and grammatical errors are likely due to EHR/dictation software use and do not reflect on the overall quality of patient care. Also, please note that the electronic time recorded on this note does not necessarily reflect the actual time of the patient encounter. SIMEON BECK MD Jan 13, 2019 04:25
[2019-01-13 05:00] VITALS: BP 117/93; PULSE 76; RESP 16
== END 2019-01-13 05:00 | disposition home or self-care (01) ==
LOC: E/R 05:27
DX: F99 Mental disorder, not otherwise specified (principal)
CPT/HCPCS: 80053; 80307; 81001; 85025; 99285

== ENCOUNTER 2019-03-15 14:31 | Emergency (ER) | payer MEDICARE, OTHER ==
[~2019-03-15] VITALS: Ht 177.8 cm; Wt 74.3 kg
[~2019-03-15 14:31] MED LIST changes: +AZIT250T PO; +BUPR150T11 ORAL; -BUSP10TA2 PO; +BUSP15TA3 ORAL; +BUSP15TA3 PO; +HYDR-4011 PO
[2019-03-15 14:35] VITALS: BP 167/94; PULSE 129; RESP 18; Ht 177.8 cm; Wt 74.3 kg
[2019-03-15] MEDS ORDERED: FLUT9.9S NASAL (14:58)
[2019-03-15] MEDS ORDERED: PSEU-79 PO (14:58)
--- NOTE | 2019-03-15 15:17 | ERD ---
ER Documentation Chief Complaint Chief Complaint Bilateral ears "blocked" X 1 wk HPI 69-year-old male presenting with clogging to ears. Runny nose. No fevers. Patient does not use any medications. No pain. Medical history denies. NKDA. Surgical history left hip. Social history denies ROS All systems reviewed and are negative except as per history of present illness. Medications Home Meds Active Scripts Fluticasone Propionate (Flonase Allergy Relief) 9.9 Ml [place].susp, 1 SPRAY NASAL DAILY, #1 BOTTLE TO EACH NOSTRIL Prov:MCKENZIE DEAL PA-C 03/15/19 Pseudoephedrine Hcl* (Suphedrin*) 30 Mg Tablet, 30 MG PO Q6 PRN for CONGESTION, #30 TAB Prov:MCKENZIE DEAL PA-C 03/15/19 Bupropion Hcl* (Wellbutrin XL*) 300 Mg Tab.sr.24h, 300 MG PO DAILY, #15 TAB.SA Prov:TAWANDA KIRKLAND MD 05/01/17 Reported Medications Buspirone Hcl* (Buspirone Hcl*) 15 Mg Tablet, 15 MG PO BID for 30 Days, #30 01/13/19 Allergies Allergies: Coded Allergies: No Known Allergy (Unverified , 01/13/19) PMhx/Soc History of Surgery: Yes (STOMACH, LEG) Anesthesia Reaction: No Hx Neurological Disorder: No Hx Respiratory Disorders: No Hx Cardiac Disorders: No Hx Psychiatric Problems: Yes (DEPRESSION, ANXIETY) Hx Miscellaneous Medical Probl: Yes (BIPOLAR, SCHIZO ) Hx Alcohol Use: No (QUIT 7 YEARS AGO) Hx Substance Use: No Hx Tobacco Use: No FmHx Family History: No diabetes, No coronary disease, No other Physical Exam Vitals Vital Signs Date Temp Pulse Resp B/P (MAP) Pulse Ox O2 O2 Flow FiO2 Time Delivery Rate 03/15/19 97.5 129 18 167/94 95 14:35 (118) Physical Exam GENERAL: The patient is well-appearing, well-nourished, in no acute distress HEENT: Atraumatic. Conjunctivae are pink. Pupils equal, round, and reactive to light. There is no scleral icterus. Tympanic membranes clear bilaterally. Oropharynx clear. NECK: C-spine is soft and supple. There is no meningismus. There is no cervical lymphadenopathy. CHEST: Clear to auscultation bilaterally. There are no rales, wheezes or rhonchi. HEART: Regular rate and rhythm. No murmurs, clicks, rubs or gallops. Procedures/MDM MDM: 69-year-old male presenting with ear pain. I have low suspicion for infectious process. I have low suspicion for foreign body. Patient likely has eustacian tube disfunction. I have low suspicion for cerumen impaction. Patient is discharged with supportive medication. He is recommended to follow up with PMD. All questions answered at discrge. Departure Condition: Stable Patient Instructions: Eustachian Tube Obstruction (Child) Referrals: [facility] YOU HAVE RECEIVED A MEDICAL SCREENING EXAM AND THE RESULTS INDICATE THAT YOU DO NOT HAVE A CONDITION THAT REQUIRES URGENT TREATMENT IN THE EMERGENCY DEPARTMENT. FURTHER EVALUATION AND TREATMENT OF YOUR CONDITION CAN WAIT UNTIL YOU ARE SEEN IN YOUR DOCTORS OFFICE WITHIN THE NEXT 1-2 DAYS. IT IS YOUR RESPONSIBILITY TO MAKE AN APPOINTMENT FOR FOLOW-UP CARE. IF YOU HAVE A PRIMARY DOCTOR --you should call your primary doctor and schedule an appointment IF YOU DO NOT HAVE A PRIMARY DOCTOR YOU CAN CALL OUR PHYSICIAN REFERRAL HOTLINE AT IF YOU CAN NOT AFFORD TO SEE A PHYSICIAN YOU CAN CHOSE FROM THE FOLLOWING [facility] [id number] [facility] [address] [facility] [facility] [address] [facility] [address] [facility] [address] [facility] [facility]. [address] Additional Instructions: FOLLOW UP WITH YOUR PRIMARY CARE PHYSICIAN TOMORROW.Return to this facility if you are not improving as expected. MCKENZIE DEAL PA-C March 15, 2019 15:17
== END 2019-03-15 15:21 | disposition home or self-care (01) ==
LOC: FTE 14:31
DX: H93.8X3 Other specified disorders of ear, bilateral (principal)
CPT/HCPCS: 99283

== ENCOUNTER 2019-03-17 23:26 | Emergency (ER) | payer MEDICARE, OTHER ==
[~2019-03-17] VITALS: Ht 175.3 cm; Wt 75.0 kg
[~2019-03-17 23:26] MED LIST changes: +FLUT9.9S NASAL; +PSEU-79 PO
[2019-03-17 23:30] VITALS: Ht 175.3 cm; Wt 75.0 kg
[2019-03-17] MEDS ORDERED: MIDAZOLAM 1 MG/ML 2 ML INJ ONE ×2 (23:47)
[2019-03-17] MEDS ORDERED: MIDAZOLAM 1 MG/ML 2 ML INJ IV ONE (23:54)
[2019-03-18] MEDS ORDERED: MIDAZOLAM 1 MG/ML 5 ML INJ IV ONE
--- NOTE | 2019-03-18 01:25 | ERD ---
ER Documentation Chief Complaint Chief Complaint ETOH and involuntary muscular jerking contractions HPI This is a 69-year-old male with a history of polysubstance abuse, who presents for evaluation of alcohol intoxication, he was brought in by ambulance, after bystanders called 911. Patient presented, with muscle jerking, agitated. He denied any chest pain or shortness of breath. History was limited secondary to patient's lack of cooperation on exam. ROS All systems reviewed and are negative except as per history of present illness. Medications Home Meds Active Scripts Fluticasone Propionate (Flonase Allergy Relief) 9.9 Ml [place].susp, 1 SPRAY NASAL DAILY, #1 BOTTLE TO EACH NOSTRIL Prov:MCKENZIE DEAL PA-C 03/15/19 Pseudoephedrine Hcl* (Suphedrin*) 30 Mg Tablet, 30 MG PO Q6 PRN for CONGESTION, #30 TAB Prov:MCKENZIE DEAL PA-C 03/15/19 Hydrocodone/Acetaminophen ([place] 5-325 Tablet) 1 Each Tablet, 1 TAB PO Q6H PRN for PAIN, #20 TAB Prov:DELL MOON MD 03/01/19 Azithromycin* (Zithromax*) 250 Mg Tablet, 250 MG PO .ZPACK DIRECTED, #6 TAB TAKE 500 MG (2 TABS) THE FIRST DAY THEN 250 MG (1 TAB) DAYS 2-5 Prov:DELL MOON MD 03/01/19 Bupropion Hcl* (Wellbutrin XL*) 300 Mg Tab.sr.24h, 300 MG PO DAILY, #15 TAB.SA Prov:TAWANDA KIRKLAND MD 05/01/17 Reported Medications Bupropion Hcl (Bupropion Hcl SR) 150 Mg Tablet.sa, 1 TAB ORAL BID 03/01/19 Buspirone Hcl* (Buspirone Hcl*) 15 Mg Tablet, 1 TAB ORAL BID 03/01/19 Buspirone Hcl* (Buspirone Hcl*) 15 Mg Tablet, 15 MG PO BID for 30 Days, #30 01/13/19 Allergies Allergies: Coded Allergies: No Known Allergy (Unverified , 01/13/19) PMhx/Soc History of Surgery: Yes (STOMACH, LEG) Anesthesia Reaction: No Hx Neurological Disorder: No Hx Respiratory Disorders: No Hx Cardiac Disorders: No Hx Psychiatric Problems: Yes (DEPRESSION, ANXIETY) Hx Miscellaneous Medical Probl: Yes (BIPOLAR, SCHIZO ) Hx Alcohol Use: Yes (QUIT 7 YEARS AGO) Hx Substance Use: No Hx Tobacco Use: No Smoking Status: Unknown if ever smoked Physical Exam Vitals Vital Signs Date Temp Pulse Resp B/P (MAP) Pulse Ox O2 O2 Flow FiO2 Time Delivery Rate 03/18/19 78 16 121/81 99 Room Air 06:16 (94) 03/18/19 98.3 108 20 111/82 100 Mask 10.0 03:58 (92) 03/18/19 98.3 100 20 102/67 100 Mask 10.0 02:18 (79) 03/17/19 98.3 95 20 154/85 93 23:30 (108) Physical Exam Const: Disheveled appearing, having jerking movement of his arms and legs, appears agitated Head: Atraumatic Eyes: Normal Conjunctiva ENT: Normal External Ears, Nose and Mouth. Neck: Full range of motion. No meningismus. Resp: Clear to auscultation bilaterally Cardio: Regular rate and rhythm, no murmurs Abd: Soft, non tender, non distended. Normal bowel sounds Skin: No petechiae or rashes Back: No midline or flank tenderness Ext: No cyanosis, or edema Neur: Awake and alert Psych: Unable to assess Result Diagram: 03/18/19 0033 03/18/19 0030 Results 24 hrs Laboratory Tests Test 03/18/19 00:30 03/18/19 00:33 03/18/19 00:35 Sodium Level 143 mmol/L Potassium Level 3.6 mmol/L Chloride Level 107 mmol/L Carbon Dioxide Level 24 mmol/L Anion Gap 12 Blood Urea Nitrogen 21 mg/dl Creatinine 1.05 mg/dl Est Glomerular Filtrat > 60 mL/min Rate mL/min Glucose Level 83 mg/dl Calcium Level 9.0 mg/dl Total Bilirubin 0.3 mg/dl Direct Bilirubin 0.00 mg/dl Indirect Bilirubin 0.3 mg/dl Aspartate Amino 40 IU/L Transf (AST/SGOT) Alanine 32 IU/L Aminotransferase (ALT/SGPT) Alkaline Phosphatase 81 IU/L Total Protein 6.3 g/dl Albumin 3.7 g/dl Globulin 2.60 g/dl Albumin/Globulin Ratio 1.42 Salicylates Level < 1.0 mg/dl Acetaminophen Level < 10.0 ug/ml Ethyl Alcohol Level 133.0 mg/dl White Blood Count 7.0 10^3/ul Red Blood Count 4.33 10^6/ul Hemoglobin 12.1 g/dl Hematocrit 37.8 % Mean Corpuscular Volume 87.3 fl Mean Corpuscular Hemoglobin 27.9 pg Mean Corpuscular 32.0 g/dl Hemoglobin Concent Red Cell Distribution Width 13.5 % Platelet Count 278 10^3/UL Mean Platelet Volume 9.6 fl Immature Granulocytes % 0.300 % Neutrophils % 75.3 % Lymphocytes % 16.2 % Monocytes % 7.1 % Eosinophils % 0.4 % Basophils % 0.7 % Nucleated Red Blood Cells % 0.0 /100WBC Immature Granulocytes # 0.020 10^3/ul Neutrophils # 5.3 10^3/ul Lymphocytes # 1.1 10^3/ul Monocytes # 0.5 10^3/ul Eosinophils # 0.0 10^3/ul Basophils # 0.1 10^3/ul Nucleated Red Blood Cells # 0.0 10^3/ul Urine Color YELLOW Urine Clarity CLEAR Urine pH 5.0 Urine Specific [place] 1.009 Urine Ketones NEGATIVE mg/dL Urine Nitrite NEGATIVE mg/dL Urine Bilirubin NEGATIVE mg/dL Urine Urobilinogen NEGATIVE mg/dL Urine Leukocyte Esterase NEGATIVE Karen/ul Urine Hemoglobin NEGATIVE mg/dL Urine Glucose NEGATIVE mg/dL Urine Total Protein NEGATIVE mg/dl Urine Opiates Screen Negative Urine Barbiturates Negative Urine Amphetamines Screen POSITIVE Urine Benzodiazepines Screen Negative Urine Cocaine Screen Positive Urine Cannabinoids Positive Current Medications Medications Dose Sig/Selena Start Time Status Last (Trade) Ordered Route PRN Stop Time Admin Dose Reason Admin Midazolam 5 mg ONCE ONCE 03/18/19 Cancel HCl IV 00:00 (Versed) 03/18/19 00:01 Midazolam 2 mg STK-MED 03/17/19 DC HCl ONCE .ROUTE 23:47 (Versed) 03/17/19 23:48 Midazolam 2 mg STK-MED 03/17/19 DC HCl ONCE .ROUTE 23:47 (Versed) 03/17/19 23:48 Midazolam 5 mg ONCE ONCE 03/17/19 DC HCl IV 23:54 (Versed) 03/18/19 02:20 Midazolam 4 mg ONCE ONCE 03/18/19 DC 03/17/19 HCl IV 02:30 23:30 (Versed) 03/18/19 02:31 Procedures/MDM 69-year-old male presents for evaluation of polysubstance abuse and agitation. Patient was given Ativan for his agitation, lab work was sent, and was overall unremarkable, he has no evidence of an emergent toxidrome, he will be monitored for clinical sobriety, and then will be reassessed. 6 AM: Patient remained clinically stable in the ED, in the morning, the patient was much more alert, awake, and is now stable to be discharged, at discharge she is amatory with steady gait and in no distress. Departure Diagnosis: Primary Impression: Alcoholic intoxication Complication of substance-induced condition: uncomplicated Qualified Codes: F10.920 - Alcohol use, unspecified with intoxication, uncomplicated Condition: Stable TAWANDA EVLAZQUEZ MD March 18, 2019 01:25
[2019-03-18] MEDS ORDERED: MIDAZOLAM 1 MG/ML 2 ML INJ IV ONE (02:30)
[2019-03-18 06:16] VITALS: BP 121/81; PULSE 78; RESP 16
== END 2019-03-18 06:42 | disposition home or self-care (01) ==
LOC: E/R 23:26
DX: F10.920 Alcohol use, unspecified with intoxication, uncomplicated (principal)
CPT/HCPCS: 36415; 80053; 80307; 81003; 85025; 96374; 99284; J2250

== ENCOUNTER 2019-03-18 07:06 | Emergency (ER) | payer MEDICARE, OTHER ==
[~2019-03-18] VITALS: Ht 167.6 cm; Wt 81.0 kg
[2019-03-18 07:18] VITALS: BP 133/76; PULSE 103; RESP 20; Ht 167.6 cm; Wt 81.0 kg
== END 2019-03-18 08:18 | disposition left against medical advice (07) ==
LOC: E/R 07:06
DX: Z53.21 Procedure and treatment not carried out due to patient leaving prior to being seen by health care provider (principal)

== ENCOUNTER 2019-05-14 18:25 | Emergency (ER) | payer MEDICARE, OTHER ==
[~2019-05-14] VITALS: Ht 177.8 cm; Wt 72.6 kg
[2019-05-14 18:43] VITALS: Ht 177.8 cm; Wt 72.6 kg
[2019-05-14] MEDS ORDERED: HYDROCODONE/APAP (5/325) TAB PO ONE (20:00)
[2019-05-14] MEDS ORDERED: KETOROLAC 30 MG INJ IM STA (20:24)
[2019-05-14] MEDS ORDERED: IBUP-1561 PO (20:40)
[2019-05-14 20:49] VITALS: BP 122/68; PULSE 90; RESP 18
--- NOTE | 2019-05-15 01:32 | ERD ---
ER Documentation Chief Complaint Chief Complaint bib ra 102 c/o glf while walking, c/o pain right hip/flank and lower back HPI 69-year-old male who is legally blind brought in by his caregiver with complaints of right hip pain after fall which occurred just prior to arrival. The patient states he accidentally tripped on a curb, landing on his right hip. Pain is rated as moderate to severe and worse with walking. He tried no medication for relief of symptoms. He is not on blood thinners. He denies any head injury or loss of consciousness or other symptoms or injuries at this time. ROS All systems reviewed and are negative except as per history of present illness. Medications Home Meds Active Scripts Ibuprofen* (Motrin*) 400 Mg Tab, 400 MG PO Q6, #30 TAB Prov:OLAYINKA COX PA-C 05/14/19 Fluticasone Propionate (Flonase Allergy Relief) 9.9 Ml [place].susp, 1 SPRAY NASAL DAILY, #1 BOTTLE TO EACH NOSTRIL Prov:MCKENZIE DEAL PA-C 03/15/19 Pseudoephedrine Hcl* (Suphedrin*) 30 Mg Tablet, 30 MG PO Q6 PRN for CONGESTION, #30 TAB Prov:MCKENZIE DEAL PA-C 03/15/19 Hydrocodone/Acetaminophen ([place] 5-325 Tablet) 1 Each Tablet, 1 TAB PO Q6H PRN for PAIN, #20 TAB Prov:DELL MOON MD 03/01/19 Azithromycin* (Zithromax*) 250 Mg Tablet, 250 MG PO .KalinaPACK DIRECTED, #6 TAB TAKE 500 MG (2 TABS) THE FIRST DAY THEN 250 MG (1 TAB) DAYS 2-5 Prov:DELL MOON MD 03/01/19 Bupropion Hcl* (Wellbutrin XL*) 300 Mg Tab.sr.24h, 300 MG PO DAILY, #15 TAB.SA Prov:TAWANDA KIRKLAND MD 05/01/17 Reported Medications Bupropion Hcl (Bupropion Hcl SR) 150 Mg Tablet.sa, 1 TAB ORAL BID 03/01/19 Buspirone Hcl* (Buspirone Hcl*) 15 Mg Tablet, 1 TAB ORAL BID 03/01/19 Buspirone Hcl* (Buspirone Hcl*) 15 Mg Tablet, 15 MG PO BID for 30 Days, #30 01/13/19 Allergies Allergies: Coded Allergies: No Known Allergy (Unverified , 01/13/19) PMhx/Soc History of Surgery: Yes (STOMACH, LEG) Anesthesia Reaction: No Hx Neurological Disorder: No Hx Respiratory Disorders: No Hx Cardiac Disorders: No Hx Psychiatric Problems: Yes (DEPRESSION, ANXIETY) Hx Miscellaneous Medical Probl: Yes (BIPOLAR, SCHIZO ) Hx Alcohol Use: Yes (QUIT 7 YEARS AGO) Hx Substance Use: No Hx Tobacco Use: No Smoking Status: Former smoker FmHx Family History: No diabetes Physical Exam Vitals Vital Signs Date Temp Pulse Resp B/P (MAP) Pulse Ox O2 O2 Flow FiO2 Time Delivery Rate 05/14/19 98.4 90 18 122/68 98 Room Air 20:49 (86) 05/14/19 98.5 94 18 119/89 98 18:43 (99) Physical Exam Const: No acute distress Head: Atraumatic Eyes: Normal Conjunctiva ENT: Normal External Ears, Nose and Mouth. Neck: Full range of motion. No meningismus. Resp: Clear to auscultation bilaterally Cardio: Regular rate and rhythm, no murmurs Abd: Soft, non tender, non distended. Normal bowel sounds Skin: No petechiae or rashes Back: No midline or flank tenderness Ext: No cyanosis, or edema mild tenderness palpation over the right lateral hip. No crepitus. No ecchymosis. Slightly limited range of motion of the right hip secondary to pain. The patient is able to ambulate in the department without assistance or difficulty. Neur: Awake and alert Psych: Normal Mood and Affect Results 24 hrs Current Medications Medications Dose Sig/Selena Start Time Status Last (Trade) Ordered Route PRN Stop Time Admin Dose Reason Admin 1 tab ONCE ONCE 05/14/19 DC 05/14/19 Acetaminophen PO 20:00 05/14/19 19:36 / 20:01 Hydrocodone Bitart ([place] (5/325)) Ketorolac 30 mg ONCE STAT 05/14/19 DC 05/14/19 Tromethamine IM 20:24 05/14/19 20:35 (Toradol) 20:25 [place] [id number] Radiology Main Line: [phone] DIAGNOSTIC IMAGING REPORT Patient: REJI CARRION : 1950 Age: 69 Sex: M MR #: [id number] DOS: 05/14/19 0000 Ordering MD: OLAYINKA COX PA-C Location: [facility] Room/Bed: PROCEDURE: XR Hip. CLINICAL INDICATION: R hip pain sp fall TECHNIQUE: AP and frog lateral views of the right hip were performed. COMPARISON: None. FINDINGS: No acute appearing fracture dislocation of the hip. Mild arthrosis with joint s pace loss and mild acetabular osteophytic lipping. Chronic-appearing ossification or calcification lateral to the hip joint. IMPRESSION: No evidence of acute fracture or dislocation. Chronic-appearing ossification or calcification lateral to the hip may be sequelae of old injury/heterotopic ossification. RPTAT: BBGG Physician Apolinar Date Time Electronically viewed and signed by Sean aSlmon Physician on 05/14/2019 20:12 RF/ CC: OLAYINKA COX PA-C [id number] Procedures/MDM 69-year-old male presents to the emergency department with signs and symptoms most consistent with right hip contusion. X-ray of the right hip interpreted by the radiologist showed no acute fracture dislocation. The patient was signific antly improved in the department after treatment with [place] and Toradol. He was otherwise stable and appropriate for discharge and further outpatient management. He will be given prescription for ibuprofen. He was in agreement with the diagnosis, plan, need for follow-up, return precautions. He was advised to return immediately for any new or worsening or concerning symptoms. Departure Diagnosis: Primary Impression: Contusion of right hip Condition: Fair Patient Instructions: Hip Contusion Referrals: COMMUNITY CLINICS YOU HAVE RECEIVED A MEDICAL SCREENING EXAM AND THE RESULTS INDICATE THAT YOU DO NOT HAVE A CONDITION THAT REQUIRES URGENT TREATMENT IN THE EMERGENCY DEPARTMENT. FURTHER EVALUATION AND TREATMENT OF YOUR CONDITION CAN WAIT UNTIL YOU ARE SEEN IN YOUR DOCTORS OFFICE WITHIN THE NEXT 1-2 DAYS. IT IS YOUR RESPONSIBILITY TO MAKE AN APPOINTMENT FOR FOLOW-UP CARE. IF YOU HAVE A PRIMARY DOCTOR --you should call your primary doctor and schedule an appointment IF YOU DO NOT HAVE A PRIMARY DOCTOR YOU CAN CALL OUR PHYSICIAN REFERRAL HOTLINE AT IF YOU CAN NOT AFFORD TO SEE A PHYSICIAN YOU CAN CHOSE FROM THE FOLLOWING FORMERLY [facility] [address] [facility] [address] [facility] [address] [facility] [address] [facility] [address] [facility] [facility] [address] [facility] [facility] Urgent Care 7 a.m.- 11 p.m. Every Day of the Week NO APPOINTMENT OR AUTHORIZATION NEEDED [facility] Hours: Mon-Fri 9:00 AM - 5:00 PM Additional Instructions: SPECIALIST: YOU HAVE A MEDICAL CONDITION WHICH REQUIRES YOU TO SEE A SPECIALIST WITHIN THE NEXT 1-2 DAYS. PLEASE FOLLOW UP WITH YOUR PRIMARY PHYSICIAN FOR REFFERAL.IF YOU DO NOT HAVE A PRIMARY CARE PHYSICIAN AND/OR YOU CAN NOT AFFORD TO SEE A PHYSICIAN THE FOLLOWING RESOURCES HAVE BEEN SUPPLIED TO YOU. IT IS YOUR RESPONSIBILITY TO BE SEEN BY THE SPECIALIST: ORTHOPEDICS OLAYINKA COX PA-C May 15, 2019 01:32
[2019-05-23] MEDS ORDERED: IBUP-1561 PO (16:31)
== END 2019-05-14 20:50 | disposition home or self-care (01) ==
LOC: FTE 18:25
DX: S70.01XA Contusion of right hip, initial encounter (principal); W01.0XXA Fall on same level from slipping, tripping and stumbling without subsequent striking against object, initial encounter; Y92.9 Unspecified place or not applicable; Z87.891 Personal history of nicotine dependence
CPT/HCPCS: 73510; 96372; 99284; J1885

== ENCOUNTER 2019-05-23 14:57 | Emergency (ER) | payer MEDICARE, OTHER ==
[~2019-05-23] VITALS: Wt 70.5 kg
[~2019-05-23 14:57] MED LIST changes: +IBUP-1561 PO
[2019-05-23 15:03] VITALS: BP 132/80; PULSE 95; RESP 20
[2019-05-23] MEDS ORDERED: IBUPROFEN 200 MG TAB PO ONE (16:00)
[2019-05-23] MEDS ORDERED: HYDROCODONE/APAP (5/325) TAB PO ONE (16:00)
--- NOTE | 2019-05-23 16:31 | ERD ---
ER Documentation Chief Complaint Chief Complaint r. hip pain s/p fall x2 wks ago, ambulatory HPI 69-year-old male presents complaint of right hip pain due to fall occurred 2 weeks ago. Patient received x-rays results within normal limits. Patient states that the pain since then has not gone away. Patient is ambulatory. Pain is made worse when he is walking. His pain is currently 7 out of 10 and he would like pain medication. Patient denies any numbness, weakness, fevers, chills. ROS All systems reviewed and are negative except as per history of present illness. Medications Home Meds Active Scripts Ibuprofen* (Motrin*) 400 Mg Tab, 400 MG PO Q6, #30 TAB Prov:OLAYINKA COX PA-C 05/14/19 Fluticasone Propionate (Flonase Allergy Relief) 9.9 Ml [place].susp, 1 SPRAY NASAL DAILY, #1 BOTTLE TO EACH NOSTRIL Prov:MCKENZIE DEAL PA-C 03/15/19 Pseudoephedrine Hcl* (Suphedrin*) 30 Mg Tablet, 30 MG PO Q6 PRN for CONGESTION, #30 TAB Prov:MCKENZIE DEAL PA-C 03/15/19 Hydrocodone/Acetaminophen ([place] 5-325 Tablet) 1 Each Tablet, 1 TAB PO Q6H PRN for PAIN, #20 TAB Prov:DELL MOON MD 03/01/19 Azithromycin* (Zithromax*) 250 Mg Tablet, 250 MG PO .ZPACK DIRECTED, #6 TAB TAKE 500 MG (2 TABS) THE FIRST DAY THEN 250 MG (1 TAB) DAYS 2-5 Prov:DELL MOON MD 03/01/19 Bupropion Hcl* (Wellbutrin XL*) 300 Mg Tab.sr.24h, 300 MG PO DAILY, #15 TAB.SA Prov:TAWANDA KIRKLAND MD 05/01/17 Reported Medications Bupropion Hcl (Bupropion Hcl SR) 150 Mg Tablet.sa, 1 TAB ORAL BID 03/01/19 Buspirone Hcl* (Buspirone Hcl*) 15 Mg Tablet, 1 TAB ORAL BID 03/01/19 Buspirone Hcl* (Buspirone Hcl*) 15 Mg Tablet, 15 MG PO BID for 30 Days, #30 01/13/19 Allergies Allergies: Coded Allergies: No Known Allergy (Unverified , 05/23/19) PMhx/Soc History of Surgery: Yes (STOMACH, LEG) Anesthesia Reaction: No Hx Neurological Disorder: No Hx Respiratory Disorders: No Hx Cardiac Disorders: No Hx Psychiatric Problems: Yes (DEPRESSION, ANXIETY) Hx Miscellaneous Medical Probl: Yes (BIPOLAR, SCHIZO, legaly blind) Hx Alcohol Use: Yes (QUIT 7 YEARS AGO) Hx Substance Use: Yes (marijuana) Hx Tobacco Use: No Smoking Status: Never smoker FmHx Family History: No diabetes, No coronary disease, No other Physical Exam Vitals Vital Signs Date Temp Pulse Resp B/P (MAP) Pulse Ox O2 O2 Flow FiO2 Time Delivery Rate 05/23/19 98.3 95 20 132/80 99 15:03 (97) Physical Exam Const: No acute distress Head: Atraumatic Eyes: Normal Conjunctiva ENT: Normal External Ears, Nose and Mouth. Neck: Full range of motion. No meningismus. Resp: Clear to auscultation bilaterally Cardio: Regular rate and rhythm, no murmurs Abd: Soft, non tender, non distended. Normal bowel sounds Skin: No petechiae or rashes Back: No midline or flank tenderness Ext: No cyanosis, or edema. Pulses and sensation intact. 5 out of 5 strength in lower extremities. Neur: Awake and alert Psych: Normal Mood and Affect Lower Extremity - bilateral: Skin: No laceration Compartments: Soft Motor: Full active range of motion hip/knee/ankle/foot. Pain elicited with flexion and internal rotation of hip. Sensation: Intact to light touch FDWS/MF/LF/P surfaces. Bones: No bony deformity noted. Joints: No effusion or laxity Pulses/Perfusion: 2+ DP, Capillary refill < 2 seconds Results 24 hrs Current Medications Medications Dose Sig/Selena Start Time Status Last (Trade) Ordered Route PRN Stop Time Admin Dose Reason Admin 1 tab ONCE ONCE 05/23/19 DC 05/23/19 Acetaminophen PO 16:00 16:02 / 05/23/19 16:01 Hydrocodone Bitart ([place] (5/325)) Ibuprofen 400 mg ONCE ONCE 05/23/19 DC 05/23/19 (Motrin) PO 16:00 16:02 05/23/19 16:01 Procedures/MDM DIAGNOSTIC IMAGING REPORT Patient: REJI CARRION : 1950 Age: 69 Sex: M MR #: [id number] DOS: 05/23/19 1555 Ordering MD: OLAYINKA MAR Location: [facility] Room/Bed: PROCEDURE: Right hip CLINICAL INDICATION: Trauma with pain TECHNIQUE: Two-view COMPARISON: X-ray right hip 05/14/2019 FINDINGS: Bony alignment and density appears unremarkable with no acute fracture, dislocation noted. Heterotopic calcification in the adjacent soft tissues unchanged from prior study. Right sacroiliac joint is open. Superior and inferior pubic rami appears intact. IMPRESSION: No acute fracture noted. RPTAT: AAOO Physician Allegra Date Time Electronically viewed and signed by Physician Allegra on 05/23/2019 16:26 MB/ CC: OLAYINKA MAR [id number] MDM: Repeat hip x-ray was performed and results within normal limits. Previous visit notes were reviewed. Patient advised to follow-up with Ortho. I have low suspicion for neurovascular compromise, compartment syndrome, fracture, osteomyelitis, septic joint, DVT, or other emergent condition. At this time, patient is stable for discharge and outpatient management. I have instructed the patient to follow-up with his/her primary care physician in 1-2 days. I have discussed with the patient the possibility of needing to see a specialist for further workup and imaging studies if symptoms persist. I have instructed the patient to promptly return to the ER for any new or worsening symptoms including but not limited to increased pain, fever, nausea, vomiting, weakness or LOC. The patient and/or family expressed understanding of and agreement with this plan. All questions were answered. Home care instructions were provided. DISCLAIMER: Inadvertent spelling and grammatical errors are likely due to EHR/dictation software use and do not reflect on the overall quality of patient care. Also, please note that the electronic time recorded on this note does not necessarily reflect the actual time of the patient encounter. Departure Diagnosis: Primary Impression: Hip injury Additional Impression: Hip pain Condition: Stable OLAYINKA MAR May 23, 2019 16:31
== END 2019-05-23 16:39 | disposition home or self-care (01) ==
LOC: FTE 14:57
DX: S79.911A Unspecified injury of right hip, initial encounter (principal); W18.39XA Other fall on same level, initial encounter; Y92.9 Unspecified place or not applicable
CPT/HCPCS: 73502; 73510